=== PATIENT | female | born 1990 | race Caucasian/White ===

== ENCOUNTER → 2016-10-01 | Outpatient (CLI) | payer MEDICAID | LOC: BRMIMAGING 13:24 | PROVIDERS: ATTEND Physician Assistant | DX: N83.01 Follicular cyst of right ovary (principal); R10.2 Pelvic and perineal pain | CPT/HCPCS: 76856-PO ==

== ENCOUNTER → 2016-12-10 | Outpatient (CLI) | payer MEDICAID | LOC: FIMAGING 16:00 | PROVIDERS: ATTEND Internal Medicine | DX: M79.645 Pain in left finger(s) (principal) ==

== ENCOUNTER 2018-03-17 12:24 | Emergency (ER) | payer MEDICAID ==
--- NOTE | 2018-03-17 13:00 | EDPHY ---
H & P Stated Complaint: lower abd pain x1 week, diarrhea, currently on abx Time Seen by Provider: 03/17/18 12:30 HPI/ROS: CHIEF COMPLAINT: Pelvic pain HISTORY OF PRESENT ILLNESS: 27 year old female s/p rt nephrectomy presents with suprapubic pain. Sudden onset of severe suprapubic pain 1 week ago. The pain felt like bladder spasms and gradually lessened over a couple of hours. However she has continued to have mild suprapubic pain until today. Just prior to arrival, the pain increased and is moderate to severe. She was seen by [facility] 1 week ago and placed on vancomycin for possible C difficile. C diff culture subsequently negative. Urine culture also negative. She has also seen by OBGYN and pelvic exam was reportedly unremarkable. No prior history of ovarian cysts. REVIEW OF SYSTEMS: complete 10 point ROS negative except at noted in the HPI - Personal History Current Tetanus/Diphtheria Vaccine: No Current Tetanus Diphtheria and Acellular Pertussis (TDAP): No - Medical/Surgical History Hx Asthma: No Hx Chronic Respiratory Disease: No Hx Diabetes: Yes Hx Cardiac Disease: No Hx Renal Disease: No Hx Cirrhosis: No Hx Alcoholism: No Hx HIV/AIDS: No Hx Splenectomy or Spleen Trauma: No Other PMH: med hx-thyroid,kidney reflux,kidney stones. [id number] kidney( 2010) - Social History Smoking Status: Never smoked Additional Social History: Single Urologist: Dr. Sparks - Physical Exam Exam: General Appearance: Alert, pleasant Eyes: Pupils equal and round, no conjunctival pallor or injection ENT, Mouth: Mucous membranes moist Neck: Normal inspection Respiratory: Lungs are clear to auscultation Cardiovascular: Regular rate and rhythm Gastrointestinal: Abdomen is soft, right lower quadrant and suprapubic tenderness Neurological: A&O, nonfocal exam Skin: Warm and dry, no rash Extremities: Nontender, no pedal edema Psychiatric: Mood and affect normal Constitutional: Initial Vital Signs Temperature (C) 37.1 C 03/17/18 12:25 Heart Rate 91 03/17/18 12:25 Respiratory Rate 18 03/17/18 12:25 Blood Pressure 147/81 H 03/17/18 12:25 O2 Sat (%) 97 03/17/18 12:25 O2 Delivery Mode Room Air Allergies/Adverse Reactions: Sulfa (Sulfonamide Antibiotics) Allergy (Intermediate, Verified 10/24/15 13:49) irritation and erythema to eyes Home Medications: Medication Instructions Recorded Levothyroxine [Synthroid 50 mcg 50 mcg PO DAILY06 10/24/15 (*)] Blisovi Fe 1-20 Tablet 03/17/18 Medical Decision Making - Diagnostics Imaging Results: Abdomen Ultrasound 03/17/18 12:56 Impression: 2.4 cm cyst right ovary with a simple appearance. No evidence for torsion. Otherwise normal pelvic ultrasound. Ultrasound abdomen limited. History: Right lower quadrant pain. Findings: Ultrasound was performed of the right lower quadrant. A normal nor an abnormal appendix is visualized. No evidence for free fluid. No evidence for an abnormal fluid collection. Impression: Indeterminate ultrasound of the right lower quadrant for appendicitis as a normal nor an abnormal appendix is visualized. Results called and discussed with Dr. Cuca Conroy at 03/17/2018 13:53. Pelvic/Renal Ultrasound 03/17/18 12:56 Impression: 2.4 cm cyst right ovary with a simple appearance. No evidence for torsion. Otherwise normal pelvic ultrasound. Ultrasound abdomen limited. History: Right lower quadrant pain. Findings: Ultrasound was performed of the right lower quadrant. A normal nor an abnormal appendix is visualized. No evidence for free fluid. No evidence for an abnormal fluid collection. Impression: Indeterminate ultrasound of the right lower quadrant for appendicitis as a normal nor an abnormal appendix is visualized. Results called and discussed with Dr. Cuca Conroy at 03/17/2018 13:53. Imaging: I viewed and interpreted images myself ED Course/Re-evaluation: This pt presents with pelvic pain. Old medical record reviewed. Urine cx negative. stat preg test ordered to r/o ectopic preg--negative. Pelvic sono ordered. CBC reveals no evidence of leukocytosis and urinalysis is negative. Pelvic ultrasound reveals a 2.4 cm right ovarian cyst, without evidence of free fluid. Results discussed with the patient. I doubt this small ovarian cyst is causing the patient's pain. For this reason, CT scan of the abdomen pelvis without IV contrast ordered. CT scan abdomen pelvis and is unremarkable. Results discussed with the patient. Unclear etiology of pain. Fortunately there is no evidence of ectopic , ovarian torsion or appendicitis. Abdominal pain precautions given. Follow up in 24-48 hours for recheck if pain persists. Differential Diagnosis: Differential diagnosis includes though it is not limited to appendicitis, cholecystitis, diverticulitis, pyelonephritis, bowel perforation, small bowel obstruction. - Data Points Laboratory Results: Laboratory Results 03/17/18 12:45 03/17/18 12:45 Point of Care Test Results: Chemistry 03/17/18 12:54 POC Sodium 140 mEq/L mEq/L (135-145) POC Potassium 4.0 mEq/L mEq/L (3.3-5.0) POC Chloride 104 mEq/L mEq/L (97-110) POC BUN 11 mg/dL mg/dL (7-23) POC Creatinine 0.9 mg/dL mg/dL (0.6-1.0) POC Glucose 94 mg/dL mg/dL (70-100) ISTAT H&H 03/17/18 12:54 POC Hgb 16.7 gm/dL H gm/dL (12.6-16.3) POC Hct 49 % H % (38-47) Departure - Departure Disposition: Home, Routine, Self-Care Clinical Impression: Abdominal pain Qualifiers: Abdominal location: right lower quadrant Qualified Code(s): R10.31 - Right lower quadrant pain Condition: Good Instructions: Acute Abdominal Pain (ED) Additional Instructions: Ibuprofen 600 mg 3 times daily while the pain persists. Referrals: Keyon Sparks MD [Primary Care Provider] - 1 day, if not improved
[2018-03-17 13:02] LABS: PLATELET COUNT 317 10^3/uL (150-400)
[2018-03-17 14:43] VITALS: BP 116/58
== END 2018-03-17 15:19 | disposition home or self-care (01) ==
DX: R10.31 Right lower quadrant pain (principal); Z87.442 Personal history of urinary calculi; Z87.448 Personal history of other diseases of urinary system
CPT/HCPCS: 82435-PO; 82565-PO; 82947-PO; 84132-PO; 84295-PO; 84520-PO; 85014-PO

== ENCOUNTER 2018-08-10 21:01 | Emergency (ER) | payer MEDICAID ==
[2018-08-10 21:07] VITALS: BP 155/94
--- NOTE | 2018-08-10 21:42 | EDPHY ---
H & P Stated Complaint: L sided abd pain, dark burning urine, sent from Time Seen by Provider: 08/10/18 21:13 HPI/ROS: CHIEF COMPLAINT: Dysuria, urinary frequency HISTORY OF PRESENT ILLNESS: 28-year-old female status post right nephrectomy presents with dysuria and urinary frequency. Onset of moderate dysuria this morning, similar to prior urinary tract infections. Took Excedrin with relief. She also has a dull achiness in her lower back, left greater than right. No vomiting, flank pain or fever. REVIEW OF SYSTEMS: complete 10 point ROS reviewed and is negative except for the noted elements in the HPI - Personal History Current Tetanus/Diphtheria Vaccine: Unsure Current Tetanus Diphtheria and Acellular Pertussis (TDAP): Unsure - Medical/Surgical History Hx Asthma: No Hx Chronic Respiratory Disease: No Hx Diabetes: Yes Hx Cardiac Disease: No Hx Renal Disease: No Hx Cirrhosis: No Hx Alcoholism: No Hx HIV/AIDS: No Hx Splenectomy or Spleen Trauma: No Other PMH: med hx-thyroid,kidney reflux,kidney stones. [id number] kidney( 2010), nephrectomy - Social History Smoking Status: Never smoked - Physical Exam Exam: General Appearance: Alert, pleasant Eyes: Pupils equal and round, no conjunctival pallor ENT, Mouth: Mucous membranes moist Neck: Normal inspection Respiratory: Lungs are clear to auscultation Cardiovascular: Regular rate and rhythm Gastrointestinal: Abdomen is soft, suprapubic and left lower quadrant tenderness Back: No CVA tenderness Neurological: A&O, nonfocal, normal gait Skin: Warm and dry Extremities: Normal inspection Psychiatric: Mood and affect normal Constitutional: Initial Vital Signs Temperature (C) 36.8 C 08/10/18 21:04 Heart Rate 99 08/10/18 21:04 Respiratory Rate 20 08/10/18 21:04 Blood Pressure 155/94 H 08/10/18 21:04 O2 Sat (%) 98 08/10/18 21:04 O2 Delivery Mode Room Air Allergies/Adverse Reactions: Sulfa (Sulfonamide Antibiotics) Allergy (Intermediate, Verified 08/10/18 21:02) irritation and erythema to eyes Home Medications: Medication Instructions Recorded Levothyroxine [Synthroid 50 mcg 50 mcg PO DAILY06 10/24/15 (*)] Blisovi Fe 1-20 Tablet 03/17/18 Cephalexin [Keflex (*)] 500 mg PO BID #10 cap 08/10/18 Medical Decision Making ED Course/Re-evaluation: This patient presents with dysuria and urinary hesitancy. Urinalysis consistent with urinary tract infection. A urine culture was sent and Keflex given. There is no evidence of pyelonephritis or kidney stone. Warning signs discussed. - Data Points Microbiology Results: MICROBIOLOGY 08/10/18 21:43 Urine,Clean Catch Urine Culture - Final Gram Neg Lucho Lactose Counter Maker Medications Given: Discontinued Medications Cephalexin HCl (Keflex) 500 mg PO EDNOW ONE PRN Reason: Protocol Stop: 08/10/18 22:37 Last Admin: 08/10/18 22:45 Dose: 500 mg Phenazopyridine HCl (Pyridium) 200 mg PO EDNOW ONE Stop: 08/10/18 22:04 Last Admin: 08/10/18 22:12 Dose: 200 mg Departure - Departure Disposition: Home, Routine, Self-Care Clinical Impression: Urinary tract infection Condition: Good Instructions: Urinary Tract Infection in Women (ED) Referrals: Shantel Unger PA [Primary Care Provider] - As per Instructions Prescriptions: Cephalexin [Keflex (*)] 500 mg PO BID #10 cap
[2018-08-10] MEDS ORDERED: PHENAZOPYRIDINE HCL 200 MG TAB PO ONE (22:03)
[2018-08-10] MEDS ORDERED: CEPHALEXIN 500 MG CAP PO ONE (22:36)
== END 2018-08-10 22:48 | disposition home or self-care (01) ==
DX: N39.0 Urinary tract infection, site not specified (principal)

== ENCOUNTER 2018-10-12 18:13 | Emergency (ER) | payer MEDICAID ==
--- NOTE | 2018-10-12 18:24 | EDPHY ---
H & P Time Seen by Provider: 10/12/18 18:19 HPI/ROS: Chief complaint. Abdominal pain HPI. 28-year-old female with low abdominal pain for 2 days. 1 episode of urgency to urinate. It is suprapubic and both sides may be somewhat worse on the right. She did notice some blood in her urine last night but not today. Nausea but no vomiting or diarrhea. No urinary frequency or dysuria. Possibly discomfort radiates to the back. No fever. No chest discomfort or trouble breathing. Patient has had of right nephrectomy secondary to kidney stones and chronic UTIs. ROS 10 systems were reviewed and negative with the exception of the elements mentioned in the history of present illness Past Medical/Surgical History: Right nephrectomy, hypothyroid, kidney stones, UTI, ovarian cyst Social History: Single, nonsmoker, no alcohol Smoking Status: Never smoked Physical Exam: General Appearance: Alert pleasant well-developed female mild distress vital signs are stable Eyes: Pupils equal and round no pallor or injection. ENT, Mouth: Mucous membranes are moist. Respiratory: There are no retractions, lungs are clear to auscultation. Cardiovascular: Regular rate and rhythm. Gastrointestinal: Abdomen is soft with tenderness in the suprapubic and adnexal area. No upper abdominal tenderness. No masses. No organomegaly. Normal bowel sounds. No flank tenderness Neurological: Awake and alert, sensory and motor exams grossly normal. Skin: Warm and dry, no rashes. Musculoskeletal: Neck is supple nontender. Extremities symmetrical, full range of motion. Psychiatric: Patient is oriented X 3, there is no agitation. Constitutional: Initial Vital Signs Temperature (C) 36.9 C 10/12/18 18:21 Heart Rate 88 10/12/18 18:21 Respiratory Rate 18 10/12/18 18:21 Blood Pressure 136/79 H 10/12/18 18:21 O2 Sat (%) 98 10/12/18 18:21 O2 Delivery Mode Room Air Allergies/Adverse Reactions: Sulfa (Sulfonamide Antibiotics) Allergy (Intermediate, Verified 10/12/18 18:19) irritation and erythema to eyes Home Medications: Medication Instructions Recorded Levothyroxine [Synthroid 50 mcg 50 mcg PO DAILY06 10/24/15 (*)] Blisovi Fe 1-20 Tablet 03/17/18 Medical Decision Making - Diagnostics Imaging Results: Imaging Impressions Pelvic/Renal Ultrasound 10/12/18 18:42 Impression: Normal ultrasound pelvis. Results called and discussed with Dr. Yuri Paz at 10/12/2018 19:23. Abdomen/Pelvis CT 10/12/18 19:41 Impression: 1. Status post right nephrectomy. No evidence for nephrolithiasis or hydronephrosis in the left kidney. 2. Mild constipation. Results called and discussed with Yuri Paz M.D., on October 12, 2018 at 2026. Ultrasound reviewed by me and discussed with Dr. Oreilly is normal. No ovarian cysts. Trace free fluid Noncontrast CT abdomen reviewed by me and discussed with Dr. Oreilly is normal. No evidence for kidney stone, hydronephrosis, appendicitis, diverticulitis Procedures: IV normal saline ED Course/Re-evaluation: Point of care urine is negative Point of care urinalysis is negative for blood or leukocytes Point of care chemistry is normal Point of care CBC shows a 10.5 white blood cell count with hemoglobin 14.5 and hematocrit 43.1 Re-evaluation 7:35 p.m. Patient is stable. Patient and I discussed laboratory and imaging studies so far. We discussed treatment plan including noncontrast CT looking for kidney stones. She expresses understanding and agreement Re-evaluation again at 8:40 p.m.. Patient is stable. She and I discussed imaging lab results. We discussed treatment plan including criteria for return importance of follow-up and further evaluation. She expresses understanding and agreement Differential Diagnosis: I considered ectopic , urinary tract infection, ovarian cyst, kidney stone, appendicitis, diverticulitis, small-bowel obstruction - Data Points Laboratory Results: 10/12/18 18:52 POC Sodium 142 mEq/L mEq/L (135-145) POC Potassium 3.8 mEq/L mEq/L (3.3-5.0) POC Chloride 103.0 mEq/L mEq/L (97-110) POC Total CO2 25 mEq/L mEq/L (22-31) POC BUN 10 mg/dL mg/dL (7-23) POC Creatinine 0.7 mg/dL mg/dL (0.6-1.0) POC Glucose 86 mg/dL mg/dL (70-100) POC Calcium 9.5 mg/dL mg/dL (8.5-10.4) Point of Care Test Results: CBC CBC Collection Date 10/12/18 CBC Collection Time 18:45 WBC 10.55 RBC 4.76 HGB 14.5 HCT 43.1 PLT 268 Neut # 7.19 Neut 68.1 LYMPH # 2.7 LYMPH 25.6 MCV 90.5 Chemistry 10/12/18 18:52 POC Sodium 142 mEq/L mEq/L (135-145) POC Potassium 3.8 mEq/L mEq/L (3.3-5.0) POC Chloride 103.0 mEq/L mEq/L (97-110) POC Total CO2 25 mEq/L mEq/L (22-31) POC BUN 10 mg/dL mg/dL (7-23) POC Creatinine 0.7 mg/dL mg/dL (0.6-1.0) POC Glucose 86 mg/dL mg/dL (70-100) POC Calcium 9.5 mg/dL mg/dL (8.5-10.4) Urine Collection Date 10/12/18 Collection Time 18:40 HCG Results Negative Urine Dip Collection Date 10/12/18 Collection Time 18:40 Specific [place] (1.002-1.030) 1.030 PH (5.0-7.5) 6.0 Leukocytes (Negative) Negative Nitrites (Negative) Negative Protein (Negative) Negative Glucose (Negative) Negative Ketones (Negative) Negative Urobilnogen (0.2-1.0 EU) 0.2 Bilirubin (Negative) Negative Blood (Negative) Negative Departure - Departure Disposition: Home, Routine, Self-Care Clinical Impression: Abdominal pain Qualifiers: Abdominal location: lower abdomen, unspecified Qualified Code(s): R10.30 - Lower abdominal pain, unspecified Condition: Good Instructions: Acute Abdominal Pain (ED) Additional Instructions: Increased fluids including fruit juice prune juice. Tylenol 1000 mg every 6 hr as needed for discomfort Return for worsening pain, fever, vomiting Recheck in 1 day for continuing symptoms Referrals: Shantel Unger PA [Primary Care Provider] - 1 day, if not improved
[2018-10-12 21:07] VITALS: BP 118/62
== END 2018-10-12 21:06 | disposition home or self-care (01) ==
LOC: CED 18:13
DX: R10.30 Lower abdominal pain, unspecified (principal); E03.9 Hypothyroidism, unspecified; Z87.440 Personal history of urinary (tract) infections; Z90.5 Acquired absence of kidney
CPT/HCPCS: 74176-PO; 76856-PO; 80048-ER; 81025-ER; 85025-QW-ER; 99284-ER